=== PATIENT | male | born 1990 | race Asian ===

== ENCOUNTER 2017-02-14 18:14 | Emergency (ER) | payer BC ==
[~2017-02-14] VITALS: Ht 170.2 cm; Wt 74.8 kg
[2017-02-14] MEDS ORDERED: BUPR200T2 PO (19:03)
[2017-02-14] MEDS ORDERED: DEXT5TAB15 PO (19:03)
--- NOTE | 2017-02-14 22:13 | NUR ---
ERMD at bedside for MSE.
[2017-02-14] MEDS ORDERED: IV NORMAL SALINE 1000 ML BAG IV ONE (22:15)
[2017-02-14 23:11] LABS: BILIRUBIN,DIRECT 0.1 mg/dL (0.0-0.2); BILIRUBIN,TOTAL 0.3 mg/dL (0.2-1.0); CREATININE 1.1 mg/dL (0.6-1.3); POTASSIUM 3.2 mmol/L (3.5-5.1); TOTAL PROTEIN, SERUM 8.6 g/dL (6.4-8.2)
[2017-02-14 23:15] LABS: BASOPHILS % (AUTO) 0.5 % (0.0-2.0); EOSINOPHILS # (AUTO) 0.2 K/uL (0.0-0.7); EOSINOPHILS % (AUTO) 2.1 % (0.0-7.0); HEMATOCRIT 44.9 % (40-50); LYMPHOCYTES # (AUTO) 2.7 K/UL (0.8-4.8); LYMPHOCYTES % (AUTO) 31.6 % (20.5-51.5); MEAN CORPUSCULAR HEMOGLOBIN 28.2 UUG (27.0-31.0); MEAN CORPUSCULAR HGB CONC 34 g/dL (32.0-37.0); MEAN CORPUSCULAR VOLUME 84.2 FL (82.0-92.0); MONOCYTES # (AUTO) 0.5 K/UL (0.1-1.30); MONOCYTES % (AUTO) 5.8 % (0.0-11.0); PLATELET COUNT (AUTO) 239 K/UL (150-450); RED BLOOD CELL COUNT(AUTO) 5.33 MIL/UL (4.7-6.1); WHITE BLOOD COUNT (AUTO) 8.4 K/UL (4.0-11.2)
[2017-02-14] MEDS ORDERED: IOHEXOL 300MG/ML 100 ML INFUS..BTL ONE (23:45)
[2017-02-14] MEDS ORDERED: IV NORMAL SALINE 250 ML IV ONE (23:45)
--- NOTE | 2017-02-15 02:38 | NUR ---
Patient discharged to home in stable conditon. Written and verbal after care instructions given. Patient verbalizes understanding of instructions.
== END 2017-02-15 02:39 | disposition home or self-care (01) ==
LOC: ER 18:20
DX: R55 Syncope and collapse (principal); R42 Dizziness and giddiness; R51 Headache; R11.2 Nausea with vomiting, unspecified; F32.9 Major depressive disorder, single episode, unspecified; F90.9 Attention-deficit hyperactivity disorder, unspecified type; F10.20 Alcohol dependence, uncomplicated
CPT/HCPCS: 36415; 70496; 70498; 80048; 80076; 84484; 85025; 85730; 93005; 96360; 96361; 99285; A4663; J7030; J7050; Q9967; 70030-TC